=== PATIENT | female | born 1960 | race Caucasian/White ===

== ENCOUNTER 2019-01-09 09:27 | Day surgery (SDC) | payer BC ==
[2019-01-09] MEDS ORDERED: MIDAZOLAM HCL 2MG/2ML VIAL IV ONE (09:28)
[2019-01-09] MEDS ORDERED: LIDOCAINE 2% MDV (20MG/ML) 20ML VIAL IV ONE (09:28)
[2019-01-09] MEDS ORDERED: PROPOFOL 10 MG/ML VIAL IV ONE (09:28)
--- NOTE | 2019-01-13 09:00 | Operative Note ---
SURGEON: Trish Tay MD OPERATION: COLONOSCOPY. INDICATIONS: This is a 58-year-old female with history of changing bowel habits who presented for colonoscopy. POSTOPERATIVE DIAGNOSES: 1. Left-sided colonic diverticulosis. 2. Two 2-3 mm sessile polyps that were removed by cold biopsy forceps. 3. Otherwise normal colon. ANESTHESIA: Sedation is per Anesthesia. Pulse oximetry was monitored throughout the procedure to maintain O2 saturation of 90% or greater. Supplemental oxygen was administered via nasal cannula. Cardiac and vital signs were monitored throughout the duration of the procedure, and they were stable. The procedure of colonoscopy and risks and alternatives of the procedure, including the risk of bleeding and perforation, among others, were explained to the patient who voiced understanding and agreed to have the procedure done. Physical examination was performed, and the patient was found stable for sedation. PROCEDURE: The patient was placed in the left lateral position. Sedation was initiated. A digital rectal exam was performed and showed some mild external hemorrhoids with no palpable rectal masses. An Olympus PCF-180AL colonoscope was then inserted into the rectum under direct visualization. It was advanced to the cecum without difficulty. The ileocecal valve and appendiceal orifice were identified and photographed. The colonic mucosa was carefully examined upon introduction of the colonoscope. There were scattered diverticula noted in the sigmoid and descending colon. There were no other lesions noted. The colonoscope was then withdrawn while carefully examining the colonic mucosal surfaces. No other lesions were noted. In the rectum, two 2-3 mm sessile polyps were noted and they were removed by cold biopsy forceps. Retroflexion revealed no other lesions. RECOMMENDATIONS: 1. The patient should be on a high-fiber diet. 2. The patient is to have a repeat colonoscopy for surveillance in 5 or 10 years depending on the histology of the polyps. Thank you for allowing me to participate in the care of your patient. DEJUAN
== END 2019-01-09 12:00 | disposition home or self-care (01) ==
LOC: HOP 09:27
PROVIDERS: ATTEND Internal Medicine Gastroenterology
DX: R19.4 Change in bowel habit (principal); K62.1 Rectal polyp; K57.30 Diverticulosis of large intestine without perforation or abscess without bleeding